=== PATIENT | female | born 1950 | race Caucasian/White ===

== ENCOUNTER → 2016-11-06 | Outpatient (CLI) | payer MEDICARE, BC ==
[~2016-11-06] MED LIST: ATENOLOL50 MG PO; LISINOPRIL10 MG PO; LOPID600 MG PO; OMEPRAZOLE20 M2 PO; SYNTHROID125 PO
--- NOTE | ~2016-11-06 | CT57 ---
[facility] A Service of [facility] RADIOLOGY TEXT RESULTS PATIENT: BAY CARLSON LOCATION: [facility] : [birth year] UNIT #: [id number] AGE: [address]: Love Leyva APRN SEX: F ORDER DR: [id number] [facility]. [place], [place] [address] [id number] O MR#: [id number] Acc #: [id number] NAME: BAY CARLSON : 1950 SEX: F STUDY DATE/TIME: 11/06/2016 10:12 UNIT: [facility] ROOM: STUDY DESCRIPTION: CT Chest Wo Cont Attending Physician: Love Leyva A.P.R.N. Referring Physician: Love Leyva A.P.R.N. Ordering Physician: Love Leyva A.P.R.N. Primary Care Physician: Love Leyva A.P.R.N. MEDICAL IMAGING REPORT This report is preliminary unless electronic signature is present EXAM CT of the chest without contrast INDICATION Followup pulmonary nodule TECHNIQUE CT of the chest was performed without contrast. Coronal and sagittal reformatted images were obtained. This CT exam was performed with one or more of the following radiation dose reduction techniques: automatic exposure control, adjustment of mA and/or kV according to patient size, and iterative reconstruction. COMPARISON 09/13/2015 FINDINGS Stable 5.0 mm nodule in the posterior right lower lobe. Stable micronodule in the posterior left lower lobe adjacent to the pleural surface. Stable triangular density in the right middle lobe on image 88. No new nodules. No suspicious lymphadenopathy. No pleural effusion. Limited imaging of the upper abdomen is unremarkable. The bone windows are unremarkable. IMPRESSION Stable tiny nodules in the lungs. Dictated by... Robby Ferrell M.D. THIS IS AN ELECTRONICALLY VERIFIED REPORT Robby Ferrell M.D. at 11/07/2016 3:51 PM [facility] A Service of [facility] RADIOLOGY TEXT RESULTS PATIENT: BAY CARLSON LOCATION: [facility] : 50 UNIT #: [id number] AGE: [address]: Love Leyva APRN SEX: F ORDER DR: Mary Alice TD: 11/07/2016 09:26 JOB #: [id number] MEDICAL IMAGING REPORT Page 1 of 1 COPY
== END | disposition home or self-care (01) ==
LOC: CCAT 09:29
DX: R91.8 Other nonspecific abnormal finding of lung field (principal)
CPT/HCPCS: 71250

== ENCOUNTER → 2016-11-17 | Outpatient (CLI) | payer MEDICARE, BC ==
--- NOTE | ~2016-11-17 | MY29 ---
[facility] A Service of [facility] RADIOLOGY TEXT RESULTS PATIENT: BAY CARLSON LOCATION: [facility] : 50 UNIT #: [id number] AGE: [address]: Radha Key MD SEX: F ORDER DR: [id number] [facility] [address] [facility]. [place], [place] [address] [id number] O MR#: [id number] Acc #: [id number] NAME: BAY CARLSON : 1950 SEX: F STUDY DATE/TIME: 11/17/2016 8:29 UNIT: [facility] ROOM: STUDY DESCRIPTION: MY JAIMEE SCREENING W/ CAD BILAT Attending Physician: Radha Key M.D. Referring Physician: Radha Key M.D. Ordering Physician: Radha Key M.D. Primary Care Physician: Love Leyva A.P.R.N. MEDICAL IMAGING REPORT This report is preliminary unless electronic signature is present EXAM Digital screening mammogram 11/17/2016 HISTORY 66-year-old woman. Positive family history, sister. Annual screen. COMPARISON Mammograms date to 03/18/2006 with most recent to 11/14/2015. FINDINGS Digital imaging of each breast was completed utilizing standard craniocaudal and mediolateral-oblique projections. Review and interpretation of digital mammograms include a second review in conjunction with FDA-approved CAD device. There is an overall increase in the parenchymal presentation bilaterally with a generalized fibronodular pattern in each breast. There are no breast masses and I see no asymmetry in the parenchymal presentation. There are no suspicious microcalcifications and I see no architectural disturbance. IMPRESSION Benign mammogram. One-year followup recommended. Patients over the age of 40 are entered into a reminder system with target due date for the next mammogram. A result letter will also be sent to the patient. BIRADS: 2 Benign finding Dictated by... Cruz Malone M.D. THIS IS AN ELECTRONICALLY VERIFIED REPORT [facility] A Service of [facility] RADIOLOGY TEXT RESULTS PATIENT: BAY CARLSON LOCATION: [facility] : 50 UNIT #: [id number] AGE: [address]: Radha Key MD SEX: F ORDER DR: Cruz Malone M.D. at 11/17/2016 3:31 PM Jade TD: 11/17/2016 15:10 JOB #: [id number] MEDICAL IMAGING REPORT Page 1 of 1 COPY
== END | disposition home or self-care (01) ==
LOC: CWCC 08:08
DX: Z12.31 Encounter for screening mammogram for malignant neoplasm of breast (principal); Z80.3 Family history of malignant neoplasm of breast
CPT/HCPCS: G0202

== ENCOUNTER → 2016-11-26 | Day surgery (SDC) | payer MEDICARE, BC ==
--- NOTE | ~2016-11-26 | OR ---
Unit #: [id number] #: [id number] Patient: BAY CARLSON [id number] [address] [place], [place] [address] [id number] O MR#: [id number] NAME: BAY CARLSON ROOM: Date of Procedure: 11/26/2016 Admission Date: 11/26/2016 Surgeon: Adebayo Kahn M.D. : 1950 Attending Physician: Adebayo Khan M.D. Primary Care Physician: Love Leyva A.P.R.N. OPERATIVE REPORT PRIMARY CARE PHYSICIAN Love Leyva A.P.R.N. PREOPERATIVE DIAGNOSES Postprandial dyspepsia, retrosternal ascending heartburn, epigastric and lower sternal pain. The patient is feeling a lot better on 20 mg of omeprazole, but still gets some breakthrough symptoms. PROCEDURE PERFORMED Upper gastrointestinal endoscopy and biopsy. POSTOPERATIVE DIAGNOSES 1. The patient had mild prepyloric antral gastritis, this was in the form of linear erosions and erythematous streaks. 2. 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 There being tongues of columnar mucosa ascending above the gastroesophageal junction. These were less than 3 cm and therefore, most likely are short segment of Johnson esophagus. Appropriate biopsies obtained from this area. 3. Rest of the examination up to third part of duodenum was normal. RECOMMENDATIONS The patient is advised to increase the dose of omeprazole from 20 mg to 40 mg p.o. q.a.m. She will be followed up in the office in 6 to 8 weeks' time. SEDATION USED MAC. DESCRIPTION OF PROCEDURE Following detailed explanation of the potential risks and complications of an upper endoscopy, namely perforation, bleeding, complication related to sedation, the patient was brought to GI lab, laid in the left lateral decubitus position. Lubricated tip of the Olympus video upper endoscope was passed through the bite block into the proximal esophagus under direct vision. The entire esophageal mucosa was examined and the patient was noted to have no esophagitis or stricture; however, there were tongues of columnar mucosa ascending above the gastroesophageal junction. The scope was then advanced into the gastric cavity, the latter was insufflated. Mucosa of the fundus, body, and antrum examined and the patient was noted to have mild antral gastritis in the form of linear erythematous streaks Unit #: [id number] #: [id number] Patient: BAY CARLSON in this area. Pylorus was intubated with visualization of normal duodenal bulb and second and third part of the duodenum. Upon withdrawal and retroflexion, incisura, cardia, and greater curve were examined and no additional findings noted. Biopsy was obtained from the antrum for CLOtest. The scope was withdrawn from the distal esophagus. Biopsy was also obtained from the distal esophageal mucosa from the Johnson segment. Entire esophageal mucosa was examined all the way up to pharynx. No additional findings were noted. The patient tolerated the procedure without any postprocedure complications. Dictated by... Mavis Aly/javy TD: 11/26/2016 09:33 JOB #: [id number] OPERATIVE REPORT Page 1 of 1 X Adebayo Khan MD X PROCEDURE OPERATIVE NOTE
== END | disposition home or self-care (01) ==
LOC: COPS 06:12
DX: K21.0 Gastro-esophageal reflux disease with esophagitis (principal); K29.70 Gastritis, unspecified, without bleeding; E03.9 Hypothyroidism, unspecified; Z79.899 Other long term (current) drug therapy; Z98.890 Other specified postprocedural states
CPT/HCPCS: 87077; 88305